=== PATIENT | male | born 1975 | race Caucasian/White ===

== ENCOUNTER 2020-09-12 15:39 | Emergency (ER) | payer MEDICARE, MEDICAID ==
[~2020-09-12] VITALS: Ht 175.3 cm; Wt 106.0 kg
[~2020-09-12 15:39] MED LIST: AMLO10TA PO; CARV3.122 PO; ZOLP10TA5 PO
[2020-09-12 16:28] LABS: CLARITY,URINE CLEAR (Clear); COLOR,URINE YELLOW (Yellow); GLUCOSE, URINE 250 mg/dl (Neg); KETONES,URINE NEGATIVE (Neg); LEUKOCYTE ESTERASE ,URINE TRACE (Neg); NITRITES, URINE NEGATIVE (Neg); OCCULT BLOOD,URINE MODERATE (Neg); PH,URINE 7.5 (4.8-8.0); PROTEIN,URINE 100 mg/dl (Neg); UROBILINOGEN,URINE 0.2 E.U/dL (0.2-1.0)
[2020-09-12 16:32] LABS: BASOPHILS % (AUTO) 0.3 % (0-1); EOSINOPHILS # (AUTO) 0.1 X10'3 (0-0.9); EOSINOPHILS % (AUTO) 1.8 % (0-6); HEMATOCRIT 37.7 % (42.0-52.0); HEMOGLOBIN 12.7 g/dl (14.0-17.9); LYMPHOCYTES # (AUTO) 0.8 X10'3 (1.1-4.8); LYMPHOCYTES % (AUTO) 10.5 % (21-51); MEAN CORPUSCULAR HEMOGLOBIN 31.3 PG (27.0-31.0); MEAN CORPUSCULAR HGB CONC 33.6 g/dL (33.0-36.5); MEAN PLATELET VOLUME 9.3 FL (7.4-10.4); MONOCYTES # (AUTO) 0.6 X10'3 (0-0.9); MONOCYTES % (AUTO) 8.2 % (2-12); NEUTROPHILS # (AUTO) 5.7 X10'3 (1.8-7.7); NEUTROPHILS % (AUTO) 79.2 % (42-75); PLATELET COUNT 145 X10'3 (140-440); RED BLOOD COUNT 4.05 X10'6 (4.70-6.10); RED CELL DISTRIBUTION WIDTH 13.8 % (11.5-14.5); WHITE BLOOD COUNT 7.2 X10'3 (4.5-11.0)
[2020-09-12 16:32] LABS: UA COLLECTION TYPE NON-SPECIFIED
[2020-09-12 16:34] LABS: BACTERIA,URINE NONE SEEN /HPF (Neg); MUCUS STRANDS NONE SEEN /LPF (Neg); SQUAMOUS EPITHELIAL CELL,UR NONE SEEN /LPF (FEW); WBC,URINE 0-4 /HPF (0-4)
[2020-09-12 16:50] LABS: ALANINE AMINOTRANSFERASE 16 U/L (12-78); ALBUMIN/GLOBULIN RATIO 1.1 (1.1-1.5); ALKALINE PHOSPHATASE 71 IU/L (46-116); ANION GAP 19 (8-16); BILIRUBIN,TOTAL 0.4 MG/DL (0.1-1.0); CALCIUM 9.8 MG/DL (8.5-10.1); CHLORIDE 103 MMOL/L (99-107); GLUCOSE 113 MG/DL (70-104); POTASSIUM 5.6 MMOL/L (3.5-5.1); SODIUM 141 MMOL/L (135-145); TOTAL CARBON DIOXIDE 18.7 MMOL/L (24-32); TOTAL PROTEIN 7.8 G/DL (6.4-8.2)
[2020-09-12 16:53] LABS: BLOOD UREA NITROGEN 153 MG/DL (7-18); BUN/CREATININE RATIO 6.4 (5.4-32.0); CREATININE 23.82 MG/DL (0.60-1.10); eGFR 2 ML/MIN
[2020-09-12 17:00] LABS: ASPARTATE AMINO TRANSFERASE 3 U/L (10-37)
[2020-09-12 17:06] VITALS: BP 173/115
== END 2020-09-12 17:03 | disposition home or self-care (01) ==
LOC: ER 15:39
DX: E87.5 Hyperkalemia (principal); Q61.2 Polycystic kidney, adult type; Z99.2 Dependence on renal dialysis
CPT/HCPCS: 36415; 80053; 81001; 85025; 87088; 99283

== ENCOUNTER 2020-11-26 08:02 | Day surgery (SDC) | payer MEDICARE, MEDICAID ==
[~2020-11-26] VITALS: Ht 175.3 cm; Wt 96.3 kg
[2020-11-26 08:36] VITALS: BP 143/87
[2020-11-26 08:55] LABS: BASOPHILS # (AUTO) 0.1 X10'3 (0-0.2); BASOPHILS % (AUTO) 1.3 % (0-1); EOSINOPHILS # (AUTO) 0.1 X10'3 (0-0.9); EOSINOPHILS % (AUTO) 2.1 % (0-6); HEMATOCRIT 31.2 % (42.0-52.0); HEMOGLOBIN 10.4 g/dl (14.0-17.9); LYMPHOCYTES # (AUTO) 0.7 X10'3 (1.1-4.8); LYMPHOCYTES % (AUTO) 15.7 % (21-51); MEAN CORPUSCULAR HEMOGLOBIN 30.7 PG (27.0-31.0); MEAN CORPUSCULAR HGB CONC 33.3 g/dL (33.0-36.5); MEAN CORPUSCULAR VOLUME 92.1 FL (78-98); MEAN PLATELET VOLUME 8.4 FL (7.4-10.4); MONOCYTES # (AUTO) 0.5 X10'3 (0-0.9); MONOCYTES % (AUTO) 12.5 % (2-12); NEUTROPHILS % (AUTO) 68.4 % (42-75); PLATELET COUNT 145 X10'3 (140-440); RED BLOOD COUNT 3.38 X10'6 (4.70-6.10); RED CELL DISTRIBUTION WIDTH 15.8 % (11.5-14.5); WHITE BLOOD COUNT 4.4 X10'3 (4.5-11.0)
[2020-11-26 09:04] LABS: ALBUMIN 3.7 G/DL (3.4-5.0); ANION GAP 6 (8-16); BLOOD UREA NITROGEN 28 MG/DL (7-18); BUN/CREATININE RATIO 3.6 (5.4-32.0); CALCIUM 9.9 MG/DL (8.5-10.1); CHLORIDE 97 MMOL/L (99-107); CREATININE 7.71 MG/DL (0.60-1.10); GLUCOSE 100 MG/DL (70-104); POTASSIUM 4.1 MMOL/L (3.5-5.1); SODIUM 142 MMOL/L (135-145); TOTAL CARBON DIOXIDE 38.9 MMOL/L (24-32); eGFR 8 ML/MIN
[2020-11-26] MEDS ORDERED: ERGO400C PO (09:06)
[2020-11-26] MEDS ORDERED: CALC667T6 PO (09:06)
[2020-11-26] MEDS ORDERED: SUCR500T PO (09:06)
[2020-11-26] MEDS ORDERED: midazolam 2 mg/2 ml injection ONE (09:40)
[2020-11-26] MEDS ORDERED: fentaNYL/PF 50MCG/1 ML 2ML syringe ONE (09:40)
[2020-11-26] MEDS ORDERED: LIDOcaine 1%/PF 5ML 10 MG/ML VIAL ONE (09:40)
[2020-11-26] MEDS ORDERED: iohexol 300mg/ml 100ml inj. ONE (09:40)
[2020-11-26] MEDS ORDERED: heparin 1,000 UNITS/NS 500ml 500 ML ONE (09:43)
== END 2020-11-26 11:15 | disposition home or self-care (01) ==
LOC: SSTAY O 08:02
PROVIDERS: ATTEND Radiology Diagnostic Radiology
DX: T82.590A Other mechanical complication of surgically created arteriovenous fistula, initial encounter (principal); Z53.8 Procedure and treatment not carried out for other reasons; I12.9 Hypertensive chronic kidney disease with stage 1 through stage 4 chronic kidney disease, or unspecified chronic kidney disease; N18.9 Chronic kidney disease, unspecified; Q61.3 Polycystic kidney, unspecified; Z20.822 Contact with and (suspected) exposure to COVID-19; Z99.2 Dependence on renal dialysis; Z79.899 Other long term (current) drug therapy; Y83.2 Surgical operation with anastomosis, bypass or graft as the cause of abnormal reaction of the patient, or of later complication, without mention of misadventure at the time of the procedure; Y92.89 Other specified places as the place of occurrence of the external cause
CPT/HCPCS: 36415; 80048; 85025; 85610; 87635; C9803; J1644; J2250; J3010; Q9967